=== PATIENT | female | born 1985 | race Two or more races ===

== ENCOUNTER 2022-10-11 22:36 | Emergency (ER) | payer OTHER ==
[~2022-10-11] VITALS: Ht 167.6 cm; Wt 81.6 kg
== END 2022-10-12 01:32 | disposition home or self-care (01) ==
LOC: ER 22:36
DX: O26.851 Spotting complicating pregnancy, first trimester (principal); Z3A.01 Less than 8 weeks gestation of pregnancy; Z88.6 Allergy status to analgesic agent